=== PATIENT | female | born 1990 | race Caucasian/White ===

== ENCOUNTER 2019-06-16 16:05 | Emergency (ER) | payer MEDICARE, MEDICAID, SELFPAY ==
[2019-06-16 16:15] VITALS: BP 116/72; PULSE 88; RESP 16; TEMP 36.6; O2SAT 100; BMI 23.9
[2019-06-16] MEDS: TET,DIPH,PERTUSS(ACELL),VAC/PF 0.5 ML SYRINGE IM (17:21)
[2019-06-16] MEDS: SULFACETAMIDE 10% OPHTH PREPACK 1 BOTTLE MISC (17:23)
[2019-06-16] MEDS: PROPARACAINE 0.5% OPHTH SOL 2 DROPS EYE-LEFT (17:24)
[2019-06-16] MEDS: FLUORESCEIN 1 MG STRIP EYE-LEFT (17:29)
--- NOTE | 2019-06-16 18:43 | ED_ITS ---
HPI - Eye Problem <ISAURO Diaz - Last Filed: 06/16/19 19:19> General Chief complaint: Eye Problems Stated complaint: thinks shingles Time Seen by Provider: 06/16/19 16:11 Source: patient Mode of arrival: Ambulatory Limitations: no limitations History of Present Illness HPI Narrative: This is a 28-year-old female, nonsmoker, who presents to ED with her father with chief complain of left-sided posterior head and neck discomfort and left eye with blurred vision and redness. Patient reports some nasal congestion is recently but without upper respiratory infection. Patient denies fever, chills, nausea or vomiting, rash. Patient denies purulent eye discharge from affected eye. Patient denies recent ill contact. Patient reports feels like a light haze over left eye and nontraumatic mild discomfort on affected eye. Patient reports she had chickenpox during childhood. Patient was evaluated at walk-in clinic in [facility] before coming into ED today and was concerned for shingles. Patient advised to follow-up with bread pan greaser closely. Patient has history of Crohn's disease and takes Humira every other week, depression/anxiety, GERD. Related Data Home Medications Medication Instructions Recorded Confirmed adalimumab [Humira Pen] mg SUBCUT 06/16/19 hydroxyzine HCl 06/16/19 omeprazole 06/16/19 venlafaxine mg PO 06/16/19 Previous Rx's Medication Instructions Recorded methocarbamol 750 mg PO TID PRN #14 tab 06/16/19 Allergies Allergy/AdvReac Type Severity Reaction Status Date / Time No Known Drug Allergies Allergy Verified 06/16/19 16:17 Review of Systems <ISAURO Diaz - Last Filed: 06/16/19 19:19> Review of Systems Narrative: General: Denies fever, chills, fatigue, malaise, sweats. HEENT: See HPI Respiratory: Denies dyspnea, cough, wheezing, hemoptysis, sputum. Cardiovascular: Denies chest pain, palpitations, orthopnea, edema. Gastrointestinal: Denies nausea, vomiting, abdominal pain, diarrhea, constipation, melena. : Denies dysuria, frequency, incontinence, hematuria, urinary retention. Musculoskeletal: Denies weakness, joint pain or bony pain, (+) neck tightness. Skin: Denies rash, skin lesions, or other. Neurologic: Denies weakness, (+) headache, numbness, change in speech, confusion, seizures, incoordination. Psychiatric: No concerning psychosocial issues. 12-point review of systems is negative except for those stated above. Patient History <ISAURO Diaz - Last Filed: 06/16/19 19:19> Medical History (Updated 06/16/19 @ 18:51 by ISAURO Diaz) Anxiety (Acute) Crohn's disease (Acute) Depression (Acute) GERD (gastroesophageal reflux disease) (Acute) Social History Smoking Status: Never smoker Smoking Status: Never smoker Substance Use Type: does not use Exam <ISAURO Diaz - Last Filed: 06/16/19 19:19> Narrative Exam Narrative: GEN: Alert, oriented x 3, well appearing and nourished, and in no acute distress. Head: Normal cephalic, atraumatic. Scalp tenderness to palpate in left posterior scalp without temporal tenderness, palpable mass or rash. EYES: Pupils are equal, round, and reactive to light and accommodation. Extraocular muscles are intact bilaterally. There is no subconjunctival hemorrhage, exudate. There is sclera injection on left eye without jaundice. ENT: Bilateral auditory canals and tympanic membranes clear. Hearing grossly intact. Nose without bleeding, purulent discharge or deviation. Facial sinuses nontender to palpate. Mucous membrane moist, no mucosal lesion. Throat without erythema, tonsillar hypertrophy or exudate. Uvula in midline, airway patent. Neck: Trachea in midline. No JVD, non-tender without lymphadenopathy. No masses or thyroid megaly. Supple, non-tender and no meningeal signs. CARDIAC: Normal regular rate and rhythm without murmurs, gallops, or rubs. No chest wall tenderness. No peripheral edema, cyanosis or pallor. Capillary refill is less than 2 seconds. RESPIRATORY: Lungs are clear to auscultate bilaterally. No cough, wheezes, rales, or rhonchi. No stridor, respiratory distress, increase work of breathing, or accessary muscle used. ABD: Abdomen soft, nontender and non-distended. No guarding or rebound tenderness to palpate. Bowel sounds are normal in all 4 quadrants. There is no palpable masses or organomegaly. EXT: Full painless ROM of all extremities with no loss of sensation, strength, effusion or edema. SKIN: Warm, dry, normal color for patient. No erythema, lesions or rash over visible areas. BACK: Nontender without deformity or crepitance. No flank tenderness. NEUROLOGICAL: Alert and oriented to place, time and person. Sensation and motor function intact bilaterally. No facial droops, dysphasia. PSYCHIATRIC: Good judgement and reason, without hallucinations, abnormal affect or abnormal behaviors during the examination. Patient is not suicidal. Initial Vital Signs Initial Vital Signs: Vital Signs Temperature 97.9 F 06/16/19 16:15 Pulse Rate 88 06/16/19 16:15 Respiratory Rate 16 06/16/19 16:15 Blood Pressure 116/72 06/16/19 16:15 Pulse Oximetry 100 06/16/19 16:15 Eyes Periorbital: periorbital findings normal Eyelids: eyelids normal Cornea: fluorescein used (A linear horizontal uptake at LL lateral region where patient reports px) Direct ophthalmoscopy: normal light reflex <Arturo Winston DO - Last Filed: 06/17/19 08:02> Initial Vital Signs Initial Vital Signs: Vital Signs Temperature 97.9 F 06/16/19 16:15 Pulse Rate 88 06/16/19 16:15 Respiratory Rate 16 06/16/19 16:15 Blood Pressure 116/72 06/16/19 16:15 Pulse Oximetry 100 06/16/19 16:15 Scores <ISAURO Diaz - Last Filed: 06/16/19 19:19> GCS [place] coma scale eye opening: Spontaneous [place] coma scale verbal response: Orientated [place] coma scale motor response: Obey commands Willy coma scale total score: 15 Course <ISAURO Diaz - Last Filed: 06/16/19 19:19> Orders Ordered: Discontinued Medications Diphtheria/Tetanus/Acell Pertussis (Adacel) 0.5 ml IM .ONCE ONE Stop: 06/16/19 17:02 Last Admin: 06/16/19 17:21 Dose: 0.5 ml Documented by: SANTHOSH Fluorescein Sodium (Ful-Emmie) 1 mg EYE-LEFT NOW ONE Stop: 06/16/19 16:20 Last Admin: 06/16/19 17:29 Dose: 1 mg Documented by: RADHAOTEM Proparacaine HCl (Parcaine 0.5% Ophth Martha) 2 drops EYE-LEFT NOW ONE Stop: 06/16/19 16:20 Last Admin: 06/16/19 17:24 Dose: 2 drop Documented by: KBROTEM Sulfacetamide (Bleph-10) 1 drops EYE-LEFT Q3H VIKAS Sulfacetamide (Bleph-10 Prepack) 1 bottle MISC SEEINSTR ONE Stop: 06/16/19 17:09 Last Admin: 06/16/19 17:23 Dose: 1 bottle Documented by: SANTHOSH Vital Signs Vital signs: Vital Signs - 8 hr 06/16/19 16:15 Temperature 97.9 F Pulse Rate 88 Respiratory Rate 16 Blood Pressure 116/72 Pulse Oximetry 100 <Arturo Winston DO - Last Filed: 06/17/19 08:02> Orders Ordered: Discontinued Medications Diphtheria/Tetanus/Acell Pertussis (Adacel) 0.5 ml IM .ONCE ONE Stop: 06/16/19 17:02 Last Admin: 06/16/19 17:21 Dose: 0.5 ml Documented by: SANTHOSH Fluorescein Sodium (Ful-Emmie) 1 mg EYE-LEFT NOW ONE Stop: 06/16/19 16:20 Last Admin: 06/16/19 17:29 Dose: 1 mg Documented by: RADHAOTEM Proparacaine HCl (Parcaine 0.5% Ophth Martha) 2 drops EYE-LEFT NOW ONE Stop: 06/16/19 16:20 Last Admin: 06/16/19 17:24 Dose: 2 drop Documented by: KBROTEM Sulfacetamide (Bleph-10) 1 drops EYE-LEFT Q3H VIKAS Sulfacetamide (Bleph-10 Prepack) 1 bottle MISC SEEINSTR ONE Stop: 06/16/19 17:09 Last Admin: 06/16/19 17:23 Dose: 1 bottle Documented by: KBROTEWendy Vital Signs Vital signs: Vital Signs - 8 hr 06/16/19 16:15 Temperature 97.9 F Pulse Rate 88 Respiratory Rate 16 Blood Pressure 116/72 Pulse Oximetry 100 MDM - Eye Problem <ISAURO Diaz - Last Filed: 06/16/19 19:19> Differential Diagnosis Differential diagnosis: Likely corneal abrasion, conjunctivitis, corneal ulcer and other (shingles) Medical Records Attestation: I reviewed the patient's medical records. MDM Narrative Medical decision making narrative: This is a 28-year-old female who presents to ED with left eye blurred vision and redness with posterior head and neck discomfort for 4 days with concerns for shingles. Left-sided posterior scalp was tender to palpate without any lesions visualized. There is no temporal region or discomfort facial region, no visible cord and inflamed artery in temporal region appreciated. Patient denies constitutional symptoms. Left eye with left sclera injection and fluorescein exam showed a linear uptake in lateral lower eye likely patient has corneal abrasion and she was treated with sulfacetamide eyedrops. Given patient possibly have decreased immune system using Humira for Crohn's disease, patient symptoms may mild for shingles and advised to monitor for any erupting a rash or worsening symptoms and return to ED. At this time the patient will be treated with [id number] Tylenol, Motrin, muscle relaxant methocarbamol for discomfort in posterior head and neck as musculoskeletal her discomfort. Patient discharged to home with a referral to bread pan greaser and advised to follow up in 2-3 days. Strict return precautions were discussed with the patient and patient verbalized understanding and in agreement with the treatment plan. Discharge Plan Departure Patient Disposition: Home Clinical Impression: Cervicalgia of [id number] region Corneal abrasion Qualifiers: Encounter type: initial encounter Laterality: left Qualified Code(s): S05.02XA - Injury of conjunctiva and corneal abrasion without foreign body, left eye, initial encounter Discharge Date/Time: 06/16/19 17:42 Instructions: DI for Corneal Abrasion, DI for Headache, DI for Neck Pain Activity Restrictions/Additional Instructions: You have been diagnosed with [cornea abrasion on left eye. It is not certain at this time that you have shingles since there is no lesions visualized]. What to do: *Take your medications as directed. Please using eyedrops that has been provided to you 1-2 drops every 3 hours while your awake for next 7 days. You can take [id number] Tylenol and or Motrin as needed for eye discomfort or headache. *Follow up with your primary care provider/bread pan greaser in 2-3 days, call for an appointment. Let them know you were seen in the ED and that we asked you to be seen in follow up. *Return to ED if you have any new, worsening, or concerning symptoms, such as [chest pain, breathing difficulty, unable to tolerate fluids, increasing eye pain, fever, decreased vision, rash or any acute concerns]. Prescriptions: New methocarbamol 750 mg tablet 750 mg PO TID PRN (Reason: muscle tightness) Qty: 14 RF: 0 No Action Humira Pen 40 mg/0.8 mL pen injector kit SUBCUT RF: 0 venlafaxine 37.5 mg capsule,extended release 24hr PO RF: 0 hydroxyzine HCl 10 mg tablet RF: 0 omeprazole RF: 0 Referrals: Terrell Lazo MD [Physician] - <Arturo Winston DO - Last Filed: 06/17/19 08:02> Cosign ED Attending Cosignature Attestation: I was immediately available in the department for consultation. This documentation has been reviewed and I agree with assessment and plan. Supervised by Arturo Winston DO
== END 2019-06-16 17:42 | disposition home or self-care (01) ==
PROVIDERS: Emergency Provider Nurse Practitioner Family
DX: S05.02XA Injury of conjunctiva and corneal abrasion without foreign body, left eye, initial encounter (principal); H53.8 Other visual disturbances; M54.2 Cervicalgia; Z23 Encounter for immunization
CPT/HCPCS: 90471; 99283; 90715